=== PATIENT | male | born 2000 | race American Indian/Alaskan Native ===

== ENCOUNTER 2020-04-26 18:41 | Emergency (ER) | payer SELFPAY ==
--- NOTE | 2020-04-26 19:54 | XRay Report ---
HISTORY:MAIN COMPARISON: 05/06/2018 TECHNIQUE: AP lateral and obliques views were obtained FINDINGS: Bones: No fracture or dislocation. Healed fracture fifth metacarpal Joint spaces: Maintained. Soft tissues: No significant abnormality. Additional findings: None. IMPRESSION: 1. No significant abnormality. Signer Name: Mariano Tristan MD Signed: 04/26/2020 7:49 PM Workstation Name: [id number]
--- NOTE | 2020-04-26 21:14 | Emergency Department Report ---
ED General Adult HPI - General Chief complaint: Extremity Injury, Upper Stated complaint: RT HAND INJURY Time Seen by Provider: 04/26/20 21:10 Source: patient Mode of arrival: Ambulatory Limitations: No Limitations - History of Present Illness Initial comments: 20 yo AA M pt presents with complaints of right hand pain after a basketball related injury x today. He states he has a chronic deformity in the right hand from a boxer's fracture some time ago in the same area of the pain. He denies any numbness/tingling/weakness of the hand or fingers or decreased ROM of the hand/fingers. Pt rates his pain as an 8/10 in severity and describes it as aching and throbbing. - Related Data Previous Rx's Medication Instructions Recorded Last Taken Type HYDROcodone/APAP 5-325 [Binger 1 each PO Q6HR PRN #10 tablet 05/06/18 Unknown Rx 5/325] Ibuprofen [Motrin 800 MG tab] 800 mg PO Q8HR PRN #21 tablet 04/26/20 Unknown Rx Allergies Allergy/AdvReac Type Severity Reaction Status Date / Time No Known Allergies Allergy Unverified 05/06/18 19:30 ED Review of Systems ROS: Stated complaint: RT HAND INJURY Other details as noted in HPI Constitutional: denies: chills, fever, malaise Musculoskeletal: arthralgia. denies: joint swelling Skin: denies: change in color Neurological: denies: numbness, paresthesias Hematological/Lymphatic: denies: easy bruising ED Past Medical Hx - Past Medical History Previous Medical History?: No - Surgical History Past Surgical History?: No - Social History Smoking Status: Former Smoker Substance Use Type: None - Medications Home Medications: Home Medications Medication Instructions Recorded Confirmed Last Taken Type HYDROcodone/APAP 5-325 [Binger 1 each PO Q6HR PRN #10 tablet 05/06/18 Unknown Rx 5/325] Ibuprofen [Motrin 800 MG tab] 800 mg PO Q8HR PRN #21 tablet 04/26/20 Unknown Rx ED Physical Exam - General Limitations: No Limitations General appearance: alert, in no apparent distress - Head Head exam: Present: atraumatic, normocephalic - Respiratory Respiratory exam: Absent: respiratory distress - Cardiovascular Cardiovascular Exam: Present: regular rate - Expanded Upper Extremity Exam Right Hand Wrist exam: Present: full ROM, tenderness (noted to right distal MC and MCP joint; no swelling or erythema noted. normal sensation and perfusion of the hand is noted). Absent: swelling, erythema - Neurological Exam Neurological exam: Present: alert, oriented X3 - Psychiatric Psychiatric exam: Present: normal affect, normal mood - Skin Skin exam: Present: warm, dry, intact, normal color. Absent: rash, cyanosis, diaphoretic, pallor, abrasion, ecchymosis ED Course Vital Signs 04/26/20 04/26/20 19:19 22:02 Temperature 98.0 F 98.0 F Pulse Rate 89 89 Respiratory 18 16 Rate Blood Pressure 113/48 Blood Pressure 124/72 [Left] O2 Sat by Pulse 98 100 Oximetry ED Medical Decision Making - Radiology Data Radiology results: report reviewed Procedure(s): XR hand 3+V RT Accession Number(s): [id number] cc: ED DOC, Fluoro Time In Minutes: HISTORY:MAIN COMPARISON: 05/06/2018 TECHNIQUE: AP lateral and obliques views were obtained FINDINGS: Bones: No fracture or dislocation. Healed fracture fifth metacarpal Joint spaces: Maintained. Soft tissues: No significant abnormality. Additional findings: None. IMPRESSION: 1. No significant abnormality. - Medical Decision Making 20 yo AA M pt presents with complaints of right hand pain after a basketball related injury x today. He states he has a chronic deformity in the right hand from a boxer's fracture some time ago in the same area of the pain. He denies any numbness/tingling/weakness of the hand or fingers or decreased ROM of the hand/fingers. Pt rates his pain as an 8/10 in severity and describes it as aching and throbbing. r is negative for any fractures or acute bony abnormalities. Will treat for hand sprain. Blue wrap applied and RICE method of treatment explained. Pt to follow up with ortho as needed. Strict return precautions were discussed in detail with pt who verbalized understanding. Critical care attestation.: If time is entered above; I have spent that time in minutes in the direct care of this critically ill patient, excluding procedure time. ED Disposition Clinical Impression: Hand sprain Qualifiers: Encounter type: initial encounter Laterality: right Qualified Code(s): S63.91XA - Sprain of unspecified part of right wrist and hand, initial encounter Disposition: TO HOME OR SELFCARE Is pt being admited?: No Condition: Stable Instructions: Hand Sprain (ED) Prescriptions: Ibuprofen [Motrin 800 MG tab] 800 mg PO Q8HR PRN #21 tablet PRN Reason: pain Referrals: [facility] [Provider Group] - as needed Forms: Work/School Release Form(ED)
[2020-04-26] MEDS ORDERED: HYDROcodone/ACETAMINOPHEN 5-325 MG TAB PO ONE (21:37)
[2020-04-26] MEDS ORDERED: IBUPROFEN 800 MG TAB PO ONE (21:37)
[2020-04-26 22:03] VITALS: BP 124/72
== END 2020-04-26 22:05 | disposition home or self-care (01) ==
LOC: ED 18:41
DX: S63.91XA Sprain of unspecified part of right wrist and hand, initial encounter (principal); Z79.899 Other long term (current) drug therapy; X50.9XXA Other and unspecified overexertion or strenuous movements or postures, initial encounter; Y93.89 Activity, other specified; Y92.89 Other specified places as the place of occurrence of the external cause; Y99.8 Other external cause status
CPT/HCPCS: 99283